=== PATIENT | male | born 1985 | race Asian ===

== ENCOUNTER 2017-06-08 12:00 | Outpatient (CLI) | payer MEDICAID, OTHER | END 2017-06-08 12:01 | disposition home or self-care (01) | LOC: LAB.WCP 12:00 | PROVIDERS: ATTEND Family Medicine | DX: R10.2 Pelvic and perineal pain (principal) | CPT/HCPCS: 80307; 80321; 80346; 80353; 80354; 80361; 80362; 80365; 81599 ==

== ENCOUNTER 2018-03-13 14:37 | Outpatient (CLI) | payer MEDICAID ==
--- NOTE | 2018-03-14 16:01 | XRAY Report ---
Reason: KNEE JOINT PAIN Procedure Date: 03/13/2018 Accession Number: [id number] / [id number] Procedure: XR - Knee 3 View RT CPT Code: FULL RESULT: EXAM: RIGHT KNEE RADIOGRAPHY EXAM DATE: 03/13/2018 03:34 PM. CLINICAL HISTORY: KNEE JOINT PAIN. COMPARISON: None. TECHNIQUE: 3 views. FINDINGS: Bones: Well-corticated bony fragments just proximal to the insertion of the patellar tendon into the tibia.. No fractures or bone lesions. Joints: Normal. No effusion. No subluxations. Soft Tissues: Normal. No soft tissue swelling. IMPRESSION: 1. No acute fracture or joint effusion. 2. No significant degenerative changes. 3. Old [place]-Schlatter's disease. [facility]
== END 2018-03-13 14:38 | disposition home or self-care (01) ==
LOC: DI 14:37
PROVIDERS: ATTEND Nurse Practitioner Family
DX: M25.561 Pain in right knee (principal)

== ENCOUNTER 2018-05-06 07:14 | Outpatient (CLI) | payer MEDICAID ==
--- NOTE | 2018-05-06 15:08 | MRI Report ---
Reason: KNEE JOINT PAIN > 3 MONTHS,RIGHT Procedure Date: 05/06/2018 Accession Number: [id number] / [id number] Procedure: MRI - Knee RT W/O CPT Code: FULL RESULT: EXAM: RIGHT KNEE MRI WITHOUT CONTRAST EXAM DATE: 05/06/2018 07:59 AM. CLINICAL HISTORY: Knee joint pain for 3 months, right. COMPARISON: None. TECHNIQUE: Multiplanar, multisequence T1-weighted and fluid-sensitive sequences of the knee without contrast. Other: None. FINDINGS: Bones: No fractures or subluxations. No marrow edema. No bone lesions. Articular Cartilage: Unremarkable. Medial Meniscus: The medial meniscus is intact. Lateral Meniscus: The lateral meniscus is intact. There is a multiloculated cyst adjacent to the posterior horn of the lateral meniscus. Cruciate Ligaments: The anterior and posterior cruciate ligaments are intact. Collateral Ligaments: The medial collateral and lateral collateral ligamentous structures are intact. Tendons: The quadriceps tendon appears normal. There is a partial-thickness tear of the patellar tendon immediately proximal to the tibial tuberosity measuring approximately 9 x 12 mm. The tear involves greater than 50% of the tendon thickness. There is fluid in the infrapatellar fat pad. Musculature: No edema or fatty atrophy. Other: There is a small joint effusion. No popliteal cyst. No loose bodies. The medial and lateral retinacula are intact. The subcutaneous tissues and fat pads are unremarkable. IMPRESSION: 1. High-grade partial-thickness tear of the patellar tendon adjacent to its distal attachment. Edema in the infrapatellar fat pad. 2. Posterolateral parameniscal cyst. [facility] MUSCULOSKELETAL RADIOLOGY SECTION
== END 2018-05-06 07:15 | disposition home or self-care (01) ==
LOC: DI 07:14
PROVIDERS: ATTEND Nurse Practitioner Family
DX: S76.111A Strain of right quadriceps muscle, fascia and tendon, initial encounter (principal); M25.861 Other specified joint disorders, right knee

== ENCOUNTER 2019-07-21 17:31 | Emergency (ER) | payer MEDICAID ==
[2019-07-21 17:46] VITALS: BP 153/93
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
--- NOTE | 2019-07-21 18:43 | XRAY Report ---
Reason: Trauma Procedure Date: 07/21/2019 Accession Number: [id number] / [id number] Procedure: XR - Forearm LT CPT Code: Final Report FULL RESULT: EXAM: LEFT FOREARM RADIOGRAPHY EXAM DATE: 07/21/2019 06:15 PM. CLINICAL HISTORY: Trauma. Forearm and elbow pain. COMPARISON: None available. TECHNIQUE: 2 views left forearm 3 views left elbow FINDINGS: Bones: Acute nondisplaced intra-articular radial head fracture, best seen on forearm views. No suspicious osseous lesion. There is a small olecranon osteophyte. Joints: Moderate volume elbow joint hemarthrosis. No significant joint space narrowing. No dislocation. Other: Marked soft tissue swelling overlying the olecranon suggests olecranon bursitis. Likely hemorrhagic olecranon bursitis if this is an acute finding. IMPRESSION: 1. Acute nondisplaced intra-articular radial head fracture. 2. Moderate volume elbow joint hemarthrosis. 3. Marked soft tissue swelling overlying the olecranon suggests olecranon bursitis. Likely hemorrhagic olecranon bursitis if this is an acute finding. [facility]
--- NOTE | 2019-07-21 18:43 | XRAY Report ---
Reason: Trauma Procedure Date: 07/21/2019 Accession Number: [id number] / [id number] Procedure: XR - Elbow 3 View LT CPT Code: Final Report FULL RESULT: EXAM: LEFT FOREARM RADIOGRAPHY EXAM DATE: 07/21/2019 06:15 PM. CLINICAL HISTORY: Trauma. Forearm and elbow pain. COMPARISON: None available. TECHNIQUE: 2 views left forearm 3 views left elbow FINDINGS: Bones: Acute nondisplaced intra-articular radial head fracture, best seen on forearm views. No suspicious osseous lesion. There is a small olecranon osteophyte. Joints: Moderate volume elbow joint hemarthrosis. No significant joint space narrowing. No dislocation. Other: Marked soft tissue swelling overlying the olecranon suggests olecranon bursitis. Likely hemorrhagic olecranon bursitis if this is an acute finding. IMPRESSION: 1. Acute nondisplaced intra-articular radial head fracture. 2. Moderate volume elbow joint hemarthrosis. 3. Marked soft tissue swelling overlying the olecranon suggests olecranon bursitis. Likely hemorrhagic olecranon bursitis if this is an acute finding. [facility]
== END 2019-07-21 19:15 | disposition home or self-care (01) ==
LOC: ED 17:31
DX: S52.125A Nondisplaced fracture of head of left radius, initial encounter for closed fracture (principal); S50.312A Abrasion of left elbow, initial encounter; V86.69XA Passenger of other special all-terrain or other off-road motor vehicle injured in nontraffic accident, initial encounter
CPT/HCPCS: 99283; 99284

== ENCOUNTER 2019-09-03 08:00 | Outpatient (CLI) | payer MEDICAID | END 2019-09-03 08:01 | disposition home or self-care (01) | LOC: LAB 08:00 | PROVIDERS: ATTEND Physician Assistant | DX: S52.125D Nondisplaced fracture of head of left radius, subsequent encounter for closed fracture with routine healing (principal); Z11.59 Encounter for screening for other viral diseases | CPT/HCPCS: 81599 ==

== ENCOUNTER 2019-09-03 10:56 | Outpatient (CLI) | payer MEDICAID ==
--- NOTE | 2019-09-03 11:28 | XRAY Report ---
Reason: LEFT RADIAL HEAD FRACTURE Procedure Date: 09/03/2019 Accession Number: [id number] / [id number] Procedure: WCP - Elbow 3 View LT CPT Code: Final Report FULL RESULT: PROCEDURE: Elbow 3 View LT INDICATIONS: LEFT RADIAL HEAD FRACTURE TECHNIQUE: 3 views of the elbow were acquired. COMPARISON: Elbow plain films dated 07.21.19 FINDINGS: Bones: Mildly displaced fracture of the lateral aspect of the radial head and neck. Increased displacement of radial head fracture. No suspicious bony lesions. Soft tissues: There is an elbow joint effusion. No suspicious soft tissue calcifications. IMPRESSION: Increased displacement of radial head fracture. Reviewed by: Malena Pastrana MD on 09/03/2019 11:27 AM PDT Approved by: Malena Pastrana MD on 09/03/2019 11:27 AM PDT Station ID: [id number]
== END 2019-09-03 23:59 | disposition home or self-care (01) ==
LOC: DI.WCP 10:56
PROVIDERS: ATTEND Orthopaedic Surgery
DX: S52.122G Displaced fracture of head of left radius, subsequent encounter for closed fracture with delayed healing (principal); S52.132 Displaced fracture of neck of left radius

== ENCOUNTER 2019-09-08 07:25 | Day surgery (SDC) | payer MEDICAID ==
[~2019-09-08 07:25] MED LIST: ACETAMINOPHEN 1,000 MG/100 ML 100 ML IV ONE; CELECOXIB 100 MG CAPSULE PO ONE
[2019-09-08] MEDS ORDERED: ROPIVACAINE 0.5% PF 20 ML VIAL EPI ONE (07:26)
[2019-09-08] MEDS ORDERED: ACETAMINOPHEN 1,000 MG/100 ML 100 ML IV ONE (07:26)
[2019-09-08] MEDS ORDERED: MIDAZOLAM 2 MG/2 ML VIAL IVP ONE (07:26)
[2019-09-08] MEDS ORDERED: LIDOCAINE-PF 2% 10 ML AMP SUBQ ONE (07:26)
[2019-09-08] MEDS ORDERED: PROPOFOL 500 MG/50 ML VIAL IVP ONE (07:26)
[2019-09-08] MEDS ORDERED: fentaNYL 100 MCG/2 ML VIAL IVP ONE (07:26)
[2019-09-08] MEDS ORDERED: DEXAMETHASONE 4 MG/ML VIAL IVP ONE (07:26)
[2019-09-08] MEDS ORDERED: LACTATED RINGERS 1,000 ML IV ONE ×2 (07:27→11:22)
[2019-09-08] MEDS ORDERED: CEFAZOLIN SODIUM IN 0.9 % NACL 2 GM/100 ML BAG IV ONE (07:54)
[2019-09-08] MEDS ORDERED: BUPIVACAINE 0.25% PF 30 ML VIAL ONE (08:26)
--- NOTE | 2019-09-08 08:46 | ANESTHESIA ---
Pre-Anesthesia VS, & Labs - Diagnosis Left radial head fracture - Procedure ORIF left radial head fracture Vital Signs: Temp Pulse Resp BP Pulse Ox 36.2 C L 76 16 143/107 H 97 09/08/19 07:38 09/08/19 07:38 09/08/19 07:38 09/08/19 07:38 09/08/19 07:38 Height 5 ft 9 in Weight (kg) 102 kg Body Mass Index 31.7 - NPO >8 hours Home Medications and Allergies Home Medications: Ambulatory Orders Acetaminophen [Tylenol] 650 mg PO Q6H PRN 09/06/19 Ibuprofen 400 mg PO Q6HR PRN 09/06/19 Acetaminophen [Tylenol] 650 mg PO Q6H PRN 09/06/19 Ibuprofen 400 mg PO Q6HR PRN 09/06/19 Allergies/Adverse Reactions: Allergies Allergy/AdvReac Type Severity Reaction Status Date / Time No Known Drug Allergies Allergy Verified 07/21/19 17:45 Anes History & Medical History - Anesthetic History Anesthesia Complications: reports: No previous complications - Medical History Cardiovascular: reports: None Pulmonary: reports: None Gastrointestinal: reports: None Urinary: reports: None Neuro: reports: None Musculoskeletal: reports: None Endocrine/Autoimmune: reports: None Blood Disorders: reports: None Skin: reports: None Smoking Status: Never smoker Psychosocial: reports: Alcohol (2-3 times per week) - Surgical History Orthopedic: Other (Pelvic fracture repair x2) Exam General: Alert, Oriented x3, Cooperative, No acute distress Dental: WNL Mouth Openin Fingerbreadth Neck Mobility: Normal Mallampati classification: II Thyromental Distance: 4-6 cm Respiratory: Lungs clear, Normal breath sounds, No respiratory distress, No accessory muscle use Cardiovascular: Regular rate, Normal S1, Normal S2, No murmurs Mental/Cognitive Status: Alert/Oriented X3, Normal for patient Plan Anesthesia Type: Supraclavicular Block (Left) Consent for Procedure(s) Verified and Reviewed: Yes Code Status: Attempt Resuscitation ASA classification: 1-Healthy patient Is this case an emergency?: No
[2019-09-08] MEDS ORDERED: BUPIVACAINE 0.25% PF 30 ML VIAL SUBQ ONE ×2 (09:41)
[2019-09-08] MEDS ORDERED: oxyCODONE 5 MG TABLET PO PRN (11:18)
[2019-09-08] MEDS ORDERED: IBUPROFEN 400 MG TABLET PO PRN (11:27)
[2019-09-08] MEDS ORDERED: ACETAMINOPHEN 325 MG TABLET PO PRN (11:27)
[2019-09-08] MEDS ORDERED: oxyCODONE 5 MG TABLET ONE (11:39)
--- NOTE | 2019-09-08 11:57 | OPERATIVE REPORT ---
Operative Report - General Procedure Date: 09/08/19 Planned Procedure: Left elbow open reduction internal fixation radial head Pre-Op Diagnosis: Displaced radial head fracture left elbow Procedure Performed: Left elbowOpen reduction internal fixation radial head Post Op Diagnosis: Displaced radial head fracture left elbow. - Procedure Note Primary Surgeon: Dr. Darell Bailey Secondary Surgeon: LELAND Jaffe Anesthesia Technique: MAC, Regional block Estimated Blood Loss (mL): 5 Indications: mildly displaced, 2mm radial head fracture, intrarticular in a heavy equipment operator/laborer Findings: partially healed radial head fracture, intra-articular with minimal step off, left elbow Complications: none - Other Other Information/Narrative: The patient was brought to the operating room and was given a supraclavicular block to the left upper extremity. He is placed in a supine position with the left arm on a arm extension table. The left upper extremity was prepped and draped in a sterile manner in the usual fashion. A timeout procedure was performed by the entire operating room team and all were in agreement. The patient did receive 2 g of Ancef prior to the incision. A sterile pneumatic tourniquet was utilized to the left upper arm and elevated 200 mmHg. A 5 cm incision was made over the posterior aspect of the lateral epicondyle and was extended distally across the radial humeral joint. The interval between the anconeus and the extensor carpi ulnaris was opened, then the synovium to expose the radial humeral joint. There was fluid within the joint, clear with a yell ow-tinged but no sign of any infection. The forearm was rotated without sign of mechanical block. The fracture was identified and was grossly stable at the intra-articular entrance of the radial head. The C arm image intensifier with sterile drape was used intermittently throughout the procedure. The fracture was temporarily stabilized with K wires. 2 micro Acumed cannulated headless screws were inserted and countersunk to avoid any impingement were utilized. These were unicortical screws. They provided good fixation and there was no mechanical block to rotation and no significant step-off within the joint. The joint cartilage of the radial head had virtually no damage other than the fracture line which was well opposed. The tourniquet was released after 63 minutes. The joint was irrigated with normal saline. The wound was closed in layers with capsule and muscle interval being closed with 0 Vicryl. The subcutaneous tissue was closed with 2-0 Vicryl. The skin was closed with a 3-0 Monocryl subcuticular suture, Dermabond and silver impregnated dressing. A long-arm padded splint was applied with the elbow in about 90 degrees of flexion. The blood loss was approximately 5 cc and he tolerated the procedure well.A physician licensed nursing assistant was utilized to facilitate with exposure, closure and splint application during the surgical procedure.
[2019-09-08 12:44] VITALS: BP 119/73
--- NOTE | 2019-09-08 13:48 | XRAY Report ---
Reason: Implant placement - left Procedure Date: 09/08/2019 Accession Number: [id number] / [id number] Procedure: FL - OR C-Arm Procedure CPT Code: Final Report FULL RESULT: PROCEDURE: OR C-Arm Procedure INDICATIONS: Implant placement - left elbow, radial head fracture TECHNIQUE: . Digital acquisition imaging during the operative procedure was performed, comprised of placement of 2 small cannulated screws crossing an area of radial head fracture with slight depression, establishing normal alignment for healing. COMPARISON: Prior elbow region plain films reviewed. FINDINGS: Normal alignment established after ORIF of a mildly depressed and displaced nonunion radial head fracture. Virtual anatomic alignment is establish for healing. IMPRESSION: Anatomic alignment established for healing at a previously slightly depressed and displaced nonunion radial head fracture. Reviewed by: Shilo Huffman MD on 09/08/2019 1:47 PM PDT Approved by: Shilo Huffman MD on 09/08/2019 1:47 PM PDT Station ID: [id number]
== END 2019-09-08 07:26 | disposition home or self-care (01) ==
LOC: SDS 07:25
PROVIDERS: ATTEND Orthopaedic Surgery
DX: S52.122A Displaced fracture of head of left radius, initial encounter for closed fracture (principal)
CPT/HCPCS: 24665; A9270; J0131; J0690; J2795; J7120

== ENCOUNTER 2019-09-15 10:55 | Outpatient (CLI) | payer MEDICAID, OTHER ==
--- NOTE | 2019-09-15 12:29 | XRAY Report ---
Reason: LEFT RADIAL HEAD FRACTURE Procedure Date: 09/15/2019 Accession Number: [id number] / [id number] Procedure: WCP - Elbow 2 View LT CPT Code: Final Report FULL RESULT: PROCEDURE: Elbow 2 View LT INDICATIONS: LEFT RADIAL HEAD FRACTURE TECHNIQUE: 2 views of the elbow were acquired. COMPARISON: X-ray elbow 07/21/2019, 09/03/2019 FINDINGS: Bones: There has been interval fixation of proximal radial head fracture. There is good anatomic alignment and hardware is intact. No suspicious bony lesions. Soft tissues: No elbow joint effusion. No suspicious soft tissue calcifications. IMPRESSION: Interval proximal radial head fixation as above. Reviewed by: Eliane Townsend MD on 09/15/2019 12:28 PM PDT Approved by: Eliane Townsend MD on 09/15/2019 12:28 PM PDT Station ID: [id number]
== END 2019-09-15 23:59 | disposition home or self-care (01) ==
LOC: DI.WCP 10:55
PROVIDERS: ATTEND Orthopaedic Surgery
DX: S52.125D Nondisplaced fracture of head of left radius, subsequent encounter for closed fracture with routine healing (principal)

== ENCOUNTER 2019-11-04 08:17 | Outpatient (CLI) | payer MEDICAID ==
--- NOTE | 2019-11-04 09:30 | XRAY Report ---
PROCEDURE: Elbow 3 View LT INDICATIONS: LEFT RADIAL HEAD FRACTURE TECHNIQUE: 3 views of the elbow were acquired. COMPARISON: 2 views dated 09/15/2019, 3 views dated 09/03/2019 FINDINGS: Bones: Again noted is ORIF of a mildly displaced and depressed radial head fracture with 2 cannulated screws. No evidence of hardware failure or loosening. Significant progress in healing with no fractu re lucency identified extending to the radial neck. There is mild depression of the lateral aspect of the radial head and there is still a fracture line at the radial head articular surface. Soft tissues: No elbow joint effusion. No suspicious soft tissue calcifications. IMPRESSION: Expected interval progress in healing of a mildly depressed radial head fracture, status post ORIF. Reviewed by: Chris Feng MD on 11/04/2019 9:28 AM PDT Approved by: Chris Feng MD on 11/04/2019 9:28 AM PDT Station ID: [id number]
== END 2019-11-04 08:18 | disposition home or self-care (01) ==
LOC: DI.WCP 08:17
PROVIDERS: ATTEND Orthopaedic Surgery
DX: S52.125D Nondisplaced fracture of head of left radius, subsequent encounter for closed fracture with routine healing (principal)

== ENCOUNTER 2020-06-13 11:50 | Outpatient (CLI) | payer MEDICAID ==
--- NOTE | 2020-06-13 15:32 | XRAY Report ---
PROCEDURE: Elbow 2 View LT INDICATIONS: ELBOW PAIN, LEFT TECHNIQUE: 3 views of the elbow were acquired. COMPARISON: 11/04/2019 FINDINGS: Bones: No acute fractures or dislocations. Redemonstration of surgical fixation of left radial head fracture. No evidence for hardware failure or loosening. Alignment is unchanged. Fracture line remain s conspicuous. Small olecranon process spur. No suspicious bony lesions. Soft tissues: No elbow joint effusion. No suspicious soft tissue calcifications. IMPRESSION: Stable radiographic evaluation of the left elbow with postsurgical changes from fixation of radial he ad fracture. Stable postsurgical alignment. No evidence for hardware complication. The fracture line remains visible. Small olecranon process spurring. Reviewed by: Brenden Manning MD on 06/13/2020 3:30 PM PDT Approved by: Brenden Manning MD on 06/13/2020 3:30 PM PDT Station ID: [id number]
== END 2020-06-13 11:51 | disposition home or self-care (01) ==
LOC: DI.S 11:50
PROVIDERS: ATTEND Registered Nurse
DX: S52.122D Displaced fracture of head of left radius, subsequent encounter for closed fracture with routine healing (principal); M77.8 Other enthesopathies, not elsewhere classified